=== PATIENT | male | born 1965 | race Caucasian/White ===

== ENCOUNTER 2018-01-26 14:13 | Observation (INO) | payer SELFPAY ==
[~2018-01-26] VITALS: Ht 177.8 cm; Wt 70.5 kg
[2018-01-26 14:43] VITALS: BP 147/89; PULSE 86; RESP 20; TEMP 99; O2SAT 98
--- NOTE | 2018-01-26 15:39 | RADRPT ---
EXAM DATE/TIME: 01/26/2018 15:14 [facility] COMPARISON: No previous studies available for comparison. INDICATIONS : Short of breath and chest pain. MEDICAL HISTORY : None. SURGICAL HISTORY : None. ENCOUNTER: Initial ACUITY: 3 days PAIN SCORE: 5/10 LOCATION: Bilateral upper chest FINDINGS: PA and lateral views of the chest demonstrate the lungs to be symmetrically aerated without evidence of mass, infiltrate or effusion. The cardiomediastinal contours are unremarkable. Osseous structure s are intact. CONCLUSION: 1. No acute cardiopulmonary disease. Daniel Venegas MD on January 26, 2018 at 15:36 Board Certified Radiologist. This report was verified electronically.
[2018-01-26 16:48] LABS: AUTOMATED NEUTROPHIL # 3.4 TH/MM3 (1.8-7.7); BASOPHIL # 0.1 TH/MM3 (0-0.2); EOSINOPHIL # 0.2 TH/MM3 (0-0.4); EOSINOPHIL % 2.8 % (0.0-4.0); HEMATOCRIT 43.7 % (39.0-51.0); HEMOGLOBIN 14.9 GM/DL (13.0-17.0); LYMPH % 35.6 % (9.0-44.0); LYMPHOCYTE # 2.3 TH/MM3 (1.0-4.8); MEAN CELL VOLUME 92.2 FL (80.0-100.0); MEAN CORPUSCULAR HEMOGLOBIN 31.4 PG (27.0-34.0); MEAN PLATELET VOLUME 8.6 FL (7.0-11.0); MONO % 8.1 % (0.0-8.0); MONOCYTE # 0.5 TH/MM3 (0-0.9); NEUT % 52.5 % (16.0-70.0); PLATELET COUNT 178 TH/MM3 (150-450); RED BLOOD COUNT 4.75 MIL/MM3 (4.50-5.90); RED CELL DISTRIBUTION WIDTH 13.3 % (11.6-17.2); WHITE BLOOD COUNT 6.5 TH/MM3 (4.0-11.0)
[2018-01-26 16:58] LABS: ALBUMIN 3.9 GM/DL (3.4-5.0); ALT (GPT) 16 U/L (12-78); AST (GOT) 16 U/L (15-37); BICARBONATE 26.6 MEQ/L (21.0-32.0); BLOOD UREA NITROGEN 10 MG/DL (7-18); CALCIUM 8.4 MG/DL (8.5-10.1); CHLORIDE 105 MEQ/L (98-107); CREATININE 1.08 MG/DL (0.60-1.30); GLOMERULAR FILTRATION RATE 72 ML/MIN (>89); GLUCOSE,RANDOM 81 MG/DL (74-106); MAGNESIUM 2.1 MG/DL (1.5-2.5); SODIUM (NA) 140 MEQ/L (136-145)
[2018-01-26 17:02] LABS: ALKALINE PHOSPHATASE 76 U/L (45-117); TOTAL BILIRUBIN ADULT 0.2 MG/DL (0.2-1.0); TOTAL PROTEIN 7.2 GM/DL (6.4-8.2); TROPONIN I LESS THAN 0.02 NG/ML (0.02-0.05)
[2018-01-26 17:07] LABS: PROTHROMBIN TIME - PATIENT 10.2 SEC (9.8-11.6)
--- NOTE | 2018-01-26 17:53 | PD ---
HPI Chief Complaint: Chest Pain Time Seen by Provider: 17:46 Travel History International Travel<30 days: No Contact w/Intl Traveler<30days: No Traveled to known affect area: No History of Present Illness HPI 52-year-old male smoker presents for evaluation of chest pain. Symptoms started 2-3 days ago. He describes it as a chest pressure in both sides of his chest which is constant with no obvious aggravating or relieving factors. He reports that he has had a slight dry cough and shortness of breath as well. He has never had this sort of chest pressure before. During review of systems he does note that he has had intermittent abdominal pain for the past year but denies any acute abdominal pain. Denies any acute nausea, vomiting, denies diaphoresis, denies back pain, recent travel, recent surgery. He has no known history of diabetes, coronary artery disease, hyperlipidemia, hypertension but he does not follow with the primary care physician. He has never had a stress test before. He has no other complaints at this time. [facility] Past Medical History Medical History: Denies Significant Hx Social History Tobacco Use: Yes Allergies-Medications (Allergen,Severity, Reaction): Coded Allergies: No Known Allergies (Unverified , 01/26/18) Reported Meds & Prescriptions Reported Meds & Active Scripts Active No Active Prescriptions or Reported Medications Review of Systems Except as stated in HPI: all other systems reviewed are Neg Physical Exam Narrative GENERAL: Well-developed well-nourished male in no acute distress SKIN: Warm and dry. HEAD: Atraumatic. Normocephalic. EYES: Pupils equal and round. No scleral icterus. No injection or drainage. ENT: No nasal bleeding or discharge. Mucous membranes pink and moist. NECK: Trachea midline. No JVD. CARDIOVASCULAR: Regular rate and rhythm. No murmur appreciated. RESPIRATORY: No accessory muscle use. Clear to auscultation. Breath sounds equal bilaterally. GASTROINTESTINAL: Abdomen soft, non-tender, nondistended. Hepatic and splenic margins not palpable. MUSCULOSKELETAL: No obvious deformities. No clubbing. No cyanosis. No edema. NEUROLOGICAL: Awake and alert. No obvious cranial nerve deficits. Motor grossly within normal limits. Normal speech. PSYCHIATRIC: Appropriate mood and affect; insight and judgment normal. Data Data Last Documented VS Vital Signs Date Time Temp Pulse Resp B/P (MAP) Pulse Ox O2 Delivery O2 Flow Rate FiO2 01/26/18 17:59 65 19 138/84 (102) 100 Room Air 01/26/18 14:43 99.0 Orders Orders Electrocardiogram (01/26/18 14:45) Ckmb (Isoenzyme) Profile (01/26/18 14:45) Complete Blood Count With Diff (01/26/18 14:45) Comprehensive Metabolic Panel (01/26/18 14:45) Magnesium (Mg) (01/26/18 14:45) Prothrombin Time / Inr (Pt) (01/26/18 14:45) Act Partial Throm Time (Ptt) (01/26/18 14:45) Troponin I (01/26/18 14:45) Lipase (01/26/18 14:45) Chest, Pa & Lat (01/26/18 14:45) CKMB (01/26/18 15:43) CKMB% (01/26/18 15:43) Aspirin (Aspirin) (01/26/18 18:00) Nitroglycerin Sl (Nitrostat Sl) (01/26/18 18:00) Admit Order (Ed Use Only) (01/26/18 18:10) Activity Bed Rest With Brp (01/26/18 18:10) Vital Signs (Adult) Q4H (01/26/18 18:10) Cardiac Rhythm .As Directed (01/26/18 18:10) Notify Dr: Other .PRN (01/26/18 18:10) Notify Parameters (01/26/18 18:10) Resp Oxygen Nasal Cannula (01/26/18 ) Ckmb (Isoenzyme) Profile (01/26/18 18:43) Ckmb (Isoenzyme) Profile (01/26/18 21:43) Troponin I (01/26/18 18:43) Troponin I (01/26/18 21:43) Electrocardiogram (01/26/18 18:43) Electrocardiogram (01/26/18 21:43) ^ Obtain (01/26/18 18:10) Sodium Chloride 0.9% Flush (Ns Flush) (01/26/18 18:15) Sodium Chloride 0.9% Flush (Ns Flush) (01/26/18 21:00) Diet Regular Basic (01/26/18 Dinner) Npo After Midnight W/ Po Meds (01/26/18 Dinner) Labs Laboratory Tests Test 01/26/18 15:43 White Blood Count 6.5 TH/MM3 Red Blood Count 4.75 MIL/MM3 Hemoglobin 14.9 GM/DL Hematocrit 43.7 % Mean Corpuscular Volume 92.2 FL Mean Corpuscular Hemoglobin 31.4 PG Mean Corpuscular Hemoglobin Concent 34.0 % Red Cell Distribution Width 13.3 % Platelet Count 178 TH/MM3 Mean Platelet Volume 8.6 FL Neutrophils (%) (Auto) 52.5 % Lymphocytes (%) (Auto) 35.6 % Monocytes (%) (Auto) 8.1 % Eosinophils (%) (Auto) 2.8 % Basophils (%) (Auto) 1.0 % Neutrophils # (Auto) 3.4 TH/MM3 Lymphocytes # (Auto) 2.3 TH/MM3 Monocytes # (Auto) 0.5 TH/MM3 Eosinophils # (Auto) 0.2 TH/MM3 Basophils # (Auto) 0.1 TH/MM3 CBC Comment DIFF FINAL Differential Comment Prothrombin Time 10.2 SEC Prothromb Time International Ratio 1.0 RATIO Activated Partial Thromboplast Time 26.4 SEC Blood Urea Nitrogen 10 MG/DL Creatinine 1.08 MG/DL Random Glucose 81 MG/DL Total Protein 7.2 GM/DL Albumin 3.9 GM/DL Calcium Level 8.4 MG/DL Magnesium Level 2.1 MG/DL Alkaline Phosphatase 76 U/L Aspartate Amino Transf (AST/SGOT) 16 U/L Alanine Aminotransferase (ALT/SGPT) 16 U/L Total Bilirubin 0.2 MG/DL Sodium Level 140 MEQ/L Potassium Level 3.7 MEQ/L Chloride Level 105 MEQ/L Carbon Dioxide Level 26.6 MEQ/L Anion Gap 8 MEQ/L Estimat Glomerular Filtration Rate 72 ML/MIN Total Creatine Kinase 182 U/L Creatine Kinase MB 1.0 NG/ML Troponin I LESS THAN 0.02 NG/ML Lipase 177 U/L MDM Medical Decision Making Medical Screen Exam Complete: Yes Emergency Medical Condition: Yes Medical Record Reviewed: Yes Differential Diagnosis Acute coronary syndrome, angina, pneumothorax, hemothorax, pericarditis, myocarditis, aortic dissection, pulmonary embolism, gastritis, GERD, pancreatitis Narrative Course The patient was placed on ECG monitoring pulse oximetry. A 12-lead EKG was obtained revealing normal sinus rhythm. Lab work, chest x-ray obtained in triage. The patient will be given aspirin, sublingual nitroglycerin. Initial chest x-ray reveals no acute cardiopulmonary disease. Lab work is unremarkable. Cardiac enzymes are negative. At this point in time the plan would be to admit the patient into the chest pain center for serial cardiac enzymes and rule out purposes. He is agreeable to this plan. Procedures EKG Prior to Arrival: Yes Diagnosis Primary Impression: Chest pain Admitting Information Admitting Physician Requests: Observation Scripts No Active Prescriptions or Reported Meds Zane Diehl Jan 26, 2018 17:53
[2018-01-26] MEDS: NITROGLYCERIN 0.4 MG SL 25 TABS/BTL SL SCH ×3 (17:58→18:19)
[2018-01-26 17:59] VITALS: BP 138/84; PULSE 65; RESP 19; O2SAT 100
[2018-01-26] MEDS ORDERED: ASPIRIN 325 MG TAB PO ONE (18:00)
--- NOTE | 2018-01-26 18:04 | PD ---
Physical Exam Date Seen by Provider: Jan 26, 2018 Narrative This patient presents with a several day history of chest pain which he describes as pressure. It is associated with shortness of breath. He is a smoker. Data Data Last Documented VS Vital Signs Date Time Temp Pulse Resp B/P (MAP) Pulse Ox O2 Delivery O2 Flow Rate FiO2 01/26/18 17:59 65 19 138/84 (102) 100 Room Air 01/26/18 14:43 99.0 Orders Orders Electrocardiogram (01/26/18 14:45) Ckmb (Isoenzyme) Profile (01/26/18 14:45) Complete Blood Count With Diff (01/26/18 14:45) Comprehensive Metabolic Panel (01/26/18 14:45) Magnesium (Mg) (01/26/18 14:45) Prothrombin Time / Inr (Pt) (01/26/18 14:45) Act Partial Throm Time (Ptt) (01/26/18 14:45) Troponin I (01/26/18 14:45) Lipase (01/26/18 14:45) Chest, Pa & Lat (01/26/18 14:45) CKMB (01/26/18 15:43) CKMB% (01/26/18 15:43) Aspirin (Aspirin) (01/26/18 18:00) Nitroglycerin Sl (Nitrostat Sl) (01/26/18 18:00) Labs Laboratory Tests Test 01/26/18 15:43 White Blood Count 6.5 TH/MM3 Red Blood Count 4.75 MIL/MM3 Hemoglobin 14.9 GM/DL Hematocrit 43.7 % Mean Corpuscular Volume 92.2 FL Mean Corpuscular Hemoglobin 31.4 PG Mean Corpuscular Hemoglobin Concent 34.0 % Red Cell Distribution Width 13.3 % Platelet Count 178 TH/MM3 Mean Platelet Volume 8.6 FL Neutrophils (%) (Auto) 52.5 % Lymphocytes (%) (Auto) 35.6 % Monocytes (%) (Auto) 8.1 % Eosinophils (%) (Auto) 2.8 % Basophils (%) (Auto) 1.0 % Neutrophils # (Auto) 3.4 TH/MM3 Lymphocytes # (Auto) 2.3 TH/MM3 Monocytes # (Auto) 0.5 TH/MM3 Eosinophils # (Auto) 0.2 TH/MM3 Basophils # (Auto) 0.1 TH/MM3 CBC Comment DIFF FINAL Differential Comment Prothrombin Time 10.2 SEC Prothromb Time International Ratio 1.0 RATIO Activated Partial Thromboplast Time 26.4 SEC Blood Urea Nitrogen 10 MG/DL Creatinine 1.08 MG/DL Random Glucose 81 MG/DL Total Protein 7.2 GM/DL Albumin 3.9 GM/DL Calcium Level 8.4 MG/DL Magnesium Level 2.1 MG/DL Alkaline Phosphatase 76 U/L Aspartate Amino Transf (AST/SGOT) 16 U/L Alanine Aminotransferase (ALT/SGPT) 16 U/L Total Bilirubin 0.2 MG/DL Sodium Level 140 MEQ/L Potassium Level 3.7 MEQ/L Chloride Level 105 MEQ/L Carbon Dioxide Level 26.6 MEQ/L Anion Gap 8 MEQ/L Estimat Glomerular Filtration Rate 72 ML/MIN Total Creatine Kinase 182 U/L Creatine Kinase MB 1.0 NG/ML Troponin I LESS THAN 0.02 NG/ML Lipase 177 U/L MDM Supervised Visit with ANGELICA: Yes Narrative Course I, Dr. Purvis, have reviewed the advance practice practitioner's documentation and am in agreement, met with the patient face to face, made the diagnosis, and the medical decision making was done by me. *My assessment and Findings: Patient is awake and alert and in no acute distress. Please see Zane Diehl PA-C's note for results of laboratory and radiographic evaluation, ED course, final diagnosis and disposition Scripts No Active Prescriptions or Reported Meds Maddie Purvis MD Jan 26, 2018 18:04
[2018-01-26] MEDS ORDERED: SODIUM CHLORIDE 0.9% FLUSH 10 ML FLUSH IV FLUSH PRN (18:15)
[2018-01-26 19:01] LABS: TROPONIN I LESS THAN 0.02 NG/ML (0.02-0.05)
[2018-01-26 20:00] VITALS: O2SAT 97
[2018-01-26 20:02] VITALS: BP 121/77; PULSE 62; RESP 18; TEMP 97.8; O2SAT 97
--- NOTE | 2018-01-26 20:13 | EKG ---
Date Performed: 01/26/2018 Time Performed: 15:39:25 PTAGE: 52 years EKG: Sinus rhythm NORMAL ECG NO PREVIOUS TRACING DOCTOR: Hardik Santos Interpretating Date/Time 01/26/2018 20:11:58
[2018-01-26] MEDS: SODIUM CHLORIDE 0.9% FLUSH 10 ML FLUSH IV FLUSH SCH (21:00)
[2018-01-26 22:31] LABS: TROPONIN I LESS THAN 0.02 NG/ML (0.02-0.05)
[2018-01-26 23:18] VITALS: BP 128/79; PULSE 68; RESP 18; TEMP 97.8; O2SAT 96
[2018-01-27 03:35] VITALS: BP 121/79; PULSE 71; RESP 18; TEMP 97.8; O2SAT 98
--- NOTE | 2018-01-27 04:50 | EKG ---
Date Performed: 01/26/2018 Time Performed: 18:25:34 PTAGE: 52 years EKG: Sinus rhythm NORMAL ECG No significant change from prior electrocardiogram. PREVIOUS TRACING : 01/26/2018 15.39 DOCTOR: Hardik Santos Interpretating Date/Time 01/27/2018 04:49:49
[2018-01-27 07:37] VITALS: PULSE 64
[2018-01-27 08:00] VITALS: BP 132/78; PULSE 75; RESP 16; TEMP 98.5; O2SAT 98
--- NOTE | 2018-01-27 11:22 | TR ---
Date Performed: 01/27/2018 Time Performed: 09:52:27 DOCTOR: Kathy Alexandra DRUG LIST: CLINICAL HISTORY: REASON FOR TEST: REASON FOR ENDING: OBSERVATION: CONCLUSION: SATISH PROTOCOL. NO CP. TEST STOPPED AFTER EXCEEDINMG GOAL HR SECONDARY TO SOB AND LE G FATIGUE.Maximum GR=294 % Max HR Achieved=91.0% Maximum TH=010/100 Total Exercise Time=11:00 COMMENTS:
[2018-01-27 11:48] VITALS: BP 134/84; PULSE 68; RESP 16; TEMP 97.5; O2SAT 97
[2018-01-27] MEDS: SODIUM CHLORIDE 0.9% FLUSH 10 ML FLUSH IV FLUSH SCH (11:56)
--- NOTE | 2018-01-27 12:25 | HHI.DCPOC ---
Discharge Care Plan Diagnosis: (1) Chest pain (2) Hyperlipidemia (3) Tobacco abuse Goals to Promote Your Health Need to discuss cholesterol management with your primary care physician. With history of hyperlipidemia, family history of heart disease, and tobacco abuse, this to be very important. * To prevent worsening of your condition and complications * To maintain your health at the optimal level Directions to Meet Your Goals Take your medications as prescribed Follow your dietary instruction Follow activity as directed Keep your appointments as scheduled Take your immunizations and boosters as scheduled If your symptoms worsen call your PCP, if no PCP go to Urgent Care Center or Emergency Room Smoking is Dangerous to Your Health. Avoid second hand smoke Call the 24-hour hour crisis hotline for domestic abuse at Thomas Bello Jan 27, 2018 12:25
--- NOTE | 2018-01-27 12:25 | HHI.HP ---
HPI Primary Care Physician No Primary Care Physician Chief Complaint Chest pain History of Present Illness This is a 52-year-old male with history of hyperlipidemia and tobacco abuse that presents to ED with a complaint of chest discomfort that has been intermittent for 2 weeks. It lasts for hours when it occurs. Found nothing in particular to bring on. Mildly short of breath. Found nothing to worsen or improve the discomfort when it is present. Denies nausea or diaphoresis with the symptoms. Cannot recall prior cardiac workup. Currently denies chest discomfort. Review of Systems General: Patient denies fevers, chills, and recent travel. HEENT: Patient denies headache, sore throat, difficulty swallowing. Cardiovascular: Has the chest discomfort as mentioned above. Denies sensation of heart beating rapidly or irregularly. No syncope. Denies diaphoresis. Respiratory: He was a little short of breath. Denies inspirational chest discomfort. Denies coughing wheezing or hemoptysis. GI: Patient denies nausea, vomiting, diarrhea, abdominal pain, bloody stools. Musculoskeletal: Patient denies joint pain or edema. Denies calf pain or edema. Neurovascular: Patient denies numbness, tingling, weakness in extremities. Denies headache. Endocrine: Denies polyuria and polydipsia. Hematologic: Denies easy bruising. Skin: Denies rash or itching. Past Family Social History Allergies: Coded Allergies: No Known Allergies (Unverified , 01/26/18) Past Medical History Hyperlipidemia however has never taken medication. Tobacco abuse. Denies hypertension, diabetes, and CAD. Past Surgical History Denies prior surgery. Reported Medications Reported Meds & Active Scripts Active No Active Prescriptions or Reported Medications Active Ordered Medications Current Medications Medications (Trade) Dose Ordered Sig/Sherrell Route Start Time Stop Time Status Last Admin (NS Flush) 2 ml UNSCH PRN IV FLUSH 01/26/18 18:15 (NS Flush) 2 ml BID IV FLUSH 01/26/18 21:00 01/27/18 11:56 Family History States that his mother age 71 of a myocardial infarction. Physical Exam Vital Signs Vital Signs Date Time Temp Pulse Resp B/P (MAP) Pulse Ox O2 Delivery O2 Flow Rate FiO2 01/27/18 11:48 97.5 68 16 134/84 (101) 97 01/27/18 08:00 98.5 75 16 132/78 (96) 98 01/27/18 03:35 97.8 71 18 121/79 (93) 98 01/26/18 23:18 97.8 68 18 128/79 (95) 96 01/26/18 20:02 97.8 62 18 121/77 (92) 97 01/26/18 20:00 97 01/26/18 18:54 (102) 01/26/18 17:59 65 19 138/84 (102) 100 Room Air 01/26/18 14:43 99.0 86 20 147/89 (108) 98 Physical Exam GENERAL: This is a well-nourished, well-developed patient, in no apparent distress. Patient speaks in clear complete sentences. Patient is pleasant. HEENT: Head is atraumatic and normocephalic. Neck is supple without lymphadenopathy and trachea is midline. No JVD or carotid bruits. CARDIOVASCULAR: Regular rate and rhythm without murmurs, gallops, or rubs. RESPIRATORY: Clear to auscultation. Breath sounds equal bilaterally. No wheezes , rales, or rhonchi. Chest wall is nontender. No use of accessory muscles. GASTROINTESTINAL: Abdomen is nontender, nondistended. Abdomen soft. No obvious pulsatile mass or bruit. No CVA tenderness. Strong femoral pulses bilaterally. Normal bowel sounds in all quadrants. MUSCULOSKELETAL: Patient is moving upper and lower extremities freely. No calf tenderness or edema, no Homans sign. Strong pulses in upper and lower extremities. NEUROLOGICAL: Patient is alert and oriented. Cranial nerves 2-12 are grossly intact. No focal deficits and speech is clear. SKIN: No rash and turgor is normal. Laboratory Laboratory Tests Test 01/26/18 15:43 01/26/18 18:20 01/26/18 21:42 White Blood Count 6.5 Red Blood Count 4.75 Hemoglobin 14.9 Hematocrit 43.7 Mean Corpuscular Volume 92.2 Mean Corpuscular Hemoglobin 31.4 Mean Corpuscular Hemoglobin Concent 34.0 Red Cell Distribution Width 13.3 Platelet Count 178 Mean Platelet Volume 8.6 Neutrophils (%) (Auto) 52.5 Lymphocytes (%) (Auto) 35.6 Monocytes (%) (Auto) 8.1 Eosinophils (%) (Auto) 2.8 Basophils (%) (Auto) 1.0 Neutrophils # (Auto) 3.4 Lymphocytes # (Auto) 2.3 Monocytes # (Auto) 0.5 Eosinophils # (Auto) 0.2 Basophils # (Auto) 0.1 CBC Comment DIFF FINAL Differential Comment Prothrombin Time 10.2 Prothromb Time International Ratio 1.0 Activated Partial Thromboplast Time 26.4 Blood Urea Nitrogen 10 Creatinine 1.08 Random Glucose 81 Total Protein 7.2 Albumin 3.9 Calcium Level 8.4 Magnesium Level 2.1 Alkaline Phosphatase 76 Aspartate Amino Transf (AST/SGOT) 16 Alanine Aminotransferase (ALT/SGPT) 16 Total Bilirubin 0.2 Sodium Level 140 Potassium Level 3.7 Chloride Level 105 Carbon Dioxide Level 26.6 Anion Gap 8 Estimat Glomerular Filtration Rate 72 Total Creatine Kinase 182 168 170 Creatine Kinase MB 1.0 1.0 LESS THAN 0.5 Troponin I LESS THAN 0.02 LESS THAN 0.02 LESS THAN 0.02 Lipase 177 Result Diagram: 01/26/18 1543 01/26/18 1543 Imaging Last 48 hours Impressions Chest X-Ray 01/26/18 1445 Signed Impressions: Service Date/Time: Friday, January 26, 2018 15:14 - CONCLUSION: 1. No acute cardiopulmonary disease. Daniel Venegas MD Course EKGs are sinus rhythm without significant ST segment depressions or elevations. Caprini VTE Risk Assessment Caprini VTE Risk Assessment: No/Low Risk (score <= 1) Caprini Risk Assessment Model Point Value = 1 Point Value = 2 Point Value = 3 Point Value = 5 Age 41-60 Minor surgery BMI > 25 kg/m2 Swollen legs Varicose veins or History of unexplained or recurrent spontaneous Oral contraceptives or hormone replacement Sepsis (< 1 month) Serious lung disease, including pneumonia (< 1 month) Abnormal pulmonary function Acute myocardial infarction Congestive heart failure (< 1 month) History of inflammatory bowel disease Medical patient at bed rest Age 61-74 Arthroscopic surgery Major open surgery (> 45 min) Laparoscopic surgery (> 45 min) Malignancy Confined to bed (> 72 hours) Immobilizing plaster cast Central venous access Age >= 75 History of VTE Family history of VTE Factor V Leiden Prothrombin [id number] Lupus anticoagulant Anticardiolipin antibodies Elevated serum homocysteine Heparin-induced thrombocytopenia Other congenital or acquired thrombophilia Stroke (< 1 month) Elective arthroplasty Hip, pelvis, or leg fracture Acute spinal cord injury (< 1 month) Prophylaxis Regimen Total Risk Factor Score Risk Level Prophylaxis Regimen 0-1 Low Early ambulation 2 Moderate Order ONE of the following: *Sequential Compression Device (SCD) *Heparin 5000 units SQ BID 3-4 Higher Order ONE of the following medications: *Heparin 5000 units SQ TID *Enoxaparin/Lovenox 40 mg SQ daily (WT < 150 kg, CrCl > 30 mL/min) *Enoxaparin/Lovenox 30 mg SQ daily (WT < 150 kg, CrCl > 10-29 mL/min) *Enoxaparin/Lovenox 30 mg SQ BID (WT < 150 kg, CrCl > 30 mL/min) AND/OR *Sequential Compression Device (SCD) 5 or more Highest Order ONE of the following medications: *Heparin 5000 units SQ TID (Preferred with Epidurals) *Enoxaparin/Lovenox 40 mg SQ daily (WT < 150 kg, CrCl > 30 mL/min) *Enoxaparin/Lovenox 30 mg SQ daily (WT < 150 kg, CrCl > 10-29 mL/min) *Enoxaparin/Lovenox 30 mg SQ BID (WT < 150 kg, CrCl > 30 mL/min) AND *Sequential Compression Device (SCD) Assessment and Plan Assessment and Plan * Chest pain: Patient has had serial cardiac enzymes and EKGs for ruling out purposes. He was seen by Dr. Alexandra of cardiology in the chest pain center. He had a Trino protocol ETT that was borderline. Subsequently nuclear as needed. Patient states he does not like he can walk the treadmill again today. Subsequently a Lexiscan has been ordered. Patient will be discharged home with a stress test is nonischemic with instructions to follow-up with PCP. Return to ED for interval issues. * Tobacco abuse: Patient has been counseled on importance of smoking cessation. * Hyperlipidemia: Patient is a follow with PCP and start on statin therapy, especially important with family history of heart disease and tobacco abuse along with his hyperlipidemia. Patient is stable at this time. He is agreeable to this plan. Thomas Bello Jan 27, 2018 12:24
[2018-01-27] MEDS ORDERED: REGADENOSON INJ 0.4 MG/5 ML SYR ONE (14:16)
--- NOTE | 2018-01-27 17:06 | EKG ---
Date Performed: 01/26/2018 Time Performed: 23:15:30 PTAGE: 52 years EKG: Sinus rhythm NORMAL ECG Since PREVIOUS TRACING , no significant change noted PREVIOUS TRACIN01/26/2018 18.25 DOCTOR: Kathy Alexandra Interpretating Date/Time 01/27/2018 17:05:55
--- NOTE | 2018-01-27 17:10 | TR ---
Date Performed: 01/27/2018 Time Performed: 14:17:51 DOCTOR: Kathy Alexandra DRUG LIST: CLINICAL HISTORY: REASON FOR TEST: REASON FOR ENDING: OBSERVATION: CONCLUSION: Lexiscan stress test was performed under standard four minute protocol. Radionuclid e was injected one minute prior to ending the test. No electrocardiographic abormalities were present to suggest ischemia. Nuclear imaging and interpretation are pending. COMMENTS:
--- NOTE | 2018-01-27 17:14 | RADRPT ---
EXAM DATE/TIME: 01/27/2018 13:57 [facility] COMPARISON: No previous studies available for comparison. INDICATIONS : Chest pain. Angina. DOSE: 27.3 mCi Tc99m Myoview at stress. 8.1 mCi Tc99m Myoview at rest. 0.4 mg Lexiscan STRESS SYMPTOMS: Dyspnea and heart racing. EJECTION FRACTION: 69% MEDICAL HISTORY : Smoker. SURGICAL HISTORY : None. ENCOUNTER: Initial ACUITY: 1 day PAIN SCALE: 0/10 LOCATION: Bilateral chest TECHNIQUE: The patient underwent pharmacologic stress with infusion of prescribed dose. Continuous ECG tracing was monitored during stress. Gated SPECT imaging was performed after stress and conventional SPECT i maging was performed at rest. The examination was performed on a SPECT/CT scanner, both attenuation and non-corrected datasets were reviewed. FINDINGS: DISTRIBUTION: The maximum perfused segment at stress is in the inferior wall. PERFUSION STUDY: The pattern of perfusion at stress is within normal limits. GATED STUDY: There is intact wall motion and thickening without hypokinetic or dyskinetic segments. CONCLUSION: 1. No significant stress-induced ischemia. 2. Intact wall motion with EF of 69%. RISK CATEGORY: Low (<1% Annual Mortality Rate) Daniel Venegas MD on January 27, 2018 at 17:09 Board Certified Radiologist. This report was verified electronically.
== END 2018-01-27 18:25 | disposition home or self-care (01) ==
LOC: NEPC 14:13 → NEDA 18:26 → NEPFCDU 19:03
PROVIDERS: ADMIT Internal Medicine Cardiovascular Disease; ATTEND Internal Medicine Cardiovascular Disease
DX: R07.89 Other chest pain (principal); R06.02 Shortness of breath; E78.5 Hyperlipidemia, unspecified; F17.200 Nicotine dependence, unspecified, uncomplicated; Z82.49 Family history of ischemic heart disease and other diseases of the circulatory system
CPT/HCPCS: 71046; 78452; 80053; 82550; 82552; 83690; 83735; 84484; 85025; 85610; 85730; 93005; 93017; 99285; A9502; G0378; J2785